=== PATIENT | female | born 1995 ===

== ENCOUNTER 2024-12-20 20:16 | Inpatient (IN) | payer OTHER ==
[~2024-12-20] VITALS: Ht 157.5 cm; Wt 54.6 kg
[2024-12-20] MEDS ORDERED: DEXTROSE 50%-WATER 25 GM/50 ML SYRINGE IVP ONE (20:40)
[2024-12-20 21:13] LABS: PLATELET COUNT (AUTO) 241 K/uL (150-450); RED BLOOD CELL COUNT(AUTO) 4.47 MIL/uL (4.00-5.20); RED CELL DISTRIBUTION WIDTH 12.7 % (11.5-14.5); WHITE BLOOD COUNT (AUTO) 9.2 K/uL (4.5-11.0)
[2024-12-20] MEDS: DEXTROSE 50%-WATER 25 GM/50 ML SYRINGE IVP ONE (21:13)
[2024-12-20 21:49] LABS: CALCIUM, TOTAL 8.5 mg/dL (8.8-10.5); CREATININE 0.71 mg/dL (0.60-1.30); GLOMERULAR FILTR. RATE CALC > 60 mL/min (>60); GLUCOSE,RANDOM 246 mg/dL (70-110); SODIUM SERUM 140 mmol/L (136-145); UREA NITROGEN, BLOOD 10 mg/dL (7-18)
[2024-12-20 21:52] LABS: ASPARTATE AMINOTRANSFERASE 15 U/L (15-37); TOTAL PROTEIN, SERUM 7.2 g/dL (6.4-8.2)
[2024-12-20 22:04] LABS: TROPONIN I-HIGH SENSITIVITY Less Than 4 ng/L (<51)
[2024-12-20] MEDS ORDERED: ONDANSETRON HCL 4 MG/2 ML VIAL IVP PRN (22:30)
[2024-12-20] MEDS: DEXTROSE 5%-LACTATED RINGERS 1,000 ML IV SCH (23:00)
[2024-12-20] MEDS: HEPARIN SODIUM,PORCINE 5,000 UNITS/ML VIAL SQ SCH (23:38)
[2024-12-21 00:46] LABS: APPEARANCE,URINE CLEAR (CLEAR); GLUCOSE, URINE (UA) >=1000 mg/dL (NEGATIVE); LEUKOCYTE ESTERASE ,URINE NEGATIVE (NEGATIVE); NITRATE,URINE NEGATIVE (NEGATIVE); OCCULT BLOOD,URINE NEGATIVE (NEGATIVE); SPECIFIC GRAVITIY, URINE 1.019 (1.003-1.030)
[2024-12-21 01:19] LABS: SQUAMOUS EPITHELIAL CELL,UR Few /LPF (None Seen)
[2024-12-21 01:19] LABS: CALCIUM, TOTAL 8.6 mg/dL (8.8-10.5); CREATININE 0.57 mg/dL (0.60-1.30); GLOMERULAR FILTR. RATE CALC > 60 mL/min (>60); GLUCOSE,RANDOM 180 mg/dL (70-110); SODIUM SERUM 141 mmol/L (136-145); UREA NITROGEN, BLOOD 8 mg/dL (7-18)
[2024-12-21 01:24] LABS: ASPARTATE AMINOTRANSFERASE 16 U/L (15-37); TOTAL PROTEIN, SERUM 7.0 g/dL (6.4-8.2)
[2024-12-21] MEDS: DEXTROSE 50%-WATER 25 GM/50 ML SYRINGE IVP PRN (01:33)
[2024-12-21] MEDS: GLUCAGON,HUMAN RECOMBINANT 1 MG VIAL SQ ONE (01:37)
[2024-12-21] MEDS: RINGERS SOLUTION,LACTATED 1,000 ML IV SCH (02:56)
[2024-12-21] MEDS: DEXTROSE 10%-WATER 1,000 ML IV SCH (02:56)
[2024-12-21 03:56] LABS: GLUCOMETER DEV NAME(LOC) ER.7; GLUCOSE,POINT OF CARE 177 MG/DL (70-110)
[2024-12-21] MEDS: DEXTROSE 50%-WATER 25 GM/50 ML SYRINGE IVP ONE (04:41)
[2024-12-21] MEDS: GLUCAGON,HUMAN RECOMBINANT 1 MG VIAL IM ONE (04:41)
[2024-12-21 04:57] LABS: PLATELET COUNT (AUTO) 246 K/uL (150-450); RED BLOOD CELL COUNT(AUTO) 4.34 MIL/uL (4.00-5.20); RED CELL DISTRIBUTION WIDTH 12.9 % (11.5-14.5); WHITE BLOOD COUNT (AUTO) 15.7 K/uL (4.5-11.0)
[2024-12-21 05:07] LABS: CALCIUM, TOTAL 8.1 mg/dL (8.8-10.5); CREATININE 0.74 mg/dL (0.60-1.30); GLOMERULAR FILTR. RATE CALC > 60 mL/min (>60); SODIUM SERUM 136 mmol/L (136-145); UREA NITROGEN, BLOOD 8 mg/dL (7-18)
[2024-12-21 05:10] LABS: GLUCOSE,RANDOM 566 mg/dL (70-110)
[2024-12-21] MEDS: HYDROCORTISONE SOD SUCC 250 MG/2 ML VIAL IVP ONE (05:52)
[2024-12-21] MEDS: SODIUM CHLORIDE 154 MEQ in DEXTROSE 10%-WATER 1,000 ML IV SCH (05:52)
[2024-12-21 07:56] LABS: GLUCOMETER DEV NAME(LOC) ER.7; GLUCOSE,POINT OF CARE 80 MG/DL (70-110)
[2024-12-21 08:43] LABS: CALCIUM, TOTAL 8.7 mg/dL (8.8-10.5); CREATININE 0.47 mg/dL (0.60-1.30); GLOMERULAR FILTR. RATE CALC > 60 mL/min (>60); GLUCOSE,RANDOM 103 mg/dL (70-110); SODIUM SERUM 141 mmol/L (136-145); UREA NITROGEN, BLOOD 8 mg/dL (7-18)
[2024-12-21 08:45] VITALS: BP 122/61; PULSE 81; RESP 18; TEMP 98.7; O2SAT 98
[2024-12-21 08:51] LABS: GLUCOMETER DEV NAME(LOC) ER.7; GLUCOSE,POINT OF CARE 87 MG/DL (70-110)
[2024-12-21 10:08] LABS: LACTIC ACID 1.3 mmol/L (0.4-2.0)
[2024-12-21] MEDS: POTASSIUM CHLORIDE 20 MEQ ER TABLET PO ONE (10:26)
[2024-12-21] MEDS: DOCUSATE SODIUM 100 MG CAPSULE PO SCH (10:26)
[2024-12-21 12:00] VITALS: BP 92/52; PULSE 71; PULSE 83; RESP 15; TEMP 97.6; O2SAT 97
[2024-12-21] MEDS: MAGNESIUM SULFATE 2 GM/WATER 50 ML IV ONE (12:04)
[2024-12-21] MEDS ORDERED: SODIUM CHLORIDE 0.9% 250 ML IV ONE (12:05)
[2024-12-21 12:45] LABS: CALCIUM, TOTAL 8.5 mg/dL (8.8-10.5); CREATININE 0.49 mg/dL (0.60-1.30); GLOMERULAR FILTR. RATE CALC > 60 mL/min (>60); GLUCOSE,RANDOM 161 mg/dL (70-110); SODIUM SERUM 140 mmol/L (136-145); UREA NITROGEN, BLOOD 8 mg/dL (7-18)
[2024-12-21 13:55] LABS: GLUCOMETER DEV NAME(LOC) ICU.S7; GLUCOSE,POINT OF CARE 156 MG/DL (70-110)
[2024-12-21 13:55] LABS: GLUCOMETER DEV NAME(LOC) ICU.S7; GLUCOSE,POINT OF CARE 122 MG/DL (70-110)
[2024-12-21 16:01] VITALS: BP 109/68; PULSE 75; RESP 17; TEMP 98.1; O2SAT 98
[2024-12-21 16:35] LABS: GLUCOMETER DEV NAME(LOC) 5S.1E; GLUCOSE,POINT OF CARE 136 MG/DL (70-110)
[2024-12-21] MEDS: HYDROCORTISONE SOD SUCC 100 MG/2 ML VIAL IVP SCH (16:44)
[2024-12-21 17:11] LABS: CALCIUM, TOTAL 8.5 mg/dL (8.8-10.5); CREATININE 0.48 mg/dL (0.60-1.30); GLOMERULAR FILTR. RATE CALC > 60 mL/min (>60); GLUCOSE,RANDOM 77 mg/dL (70-110); SODIUM SERUM 142 mmol/L (136-145); UREA NITROGEN, BLOOD 7 mg/dL (7-18)
[2024-12-21 17:30] LABS: GLUCOMETER DEV NAME(LOC) ICUN.7; GLUCOSE,POINT OF CARE 123 MG/DL (70-110)
[2024-12-21 17:30] LABS: GLUCOMETER DEV NAME(LOC) ICUN.7; GLUCOSE,POINT OF CARE 89 MG/DL (70-110)
[2024-12-21 17:30] LABS: GLUCOMETER DEV NAME(LOC) ICUN.7; GLUCOSE,POINT OF CARE 178 MG/DL (70-110)
[2024-12-21 19:43] VITALS: BP 111/86; PULSE 88; RESP 17; TEMP 98.4; O2SAT 98
[2024-12-21 20:00] VITALS: BP 111/86; PULSE 88; RESP 18; TEMP 98.4; O2SAT 98
[2024-12-21] MEDS: MELATONIN 5 MG TABLET PO PRN (21:06)
[2024-12-21] MEDS: CHLORHEXIDINE GLUCONATE 2% TOWELETTE [2'S/6'S] TP SCH (22:00)
[2024-12-22] VITALS (7 sets, daily range): BP systolic 104–120; BP diastolic 64–84; PULSE 78–105; RESP 16–19; TEMP 98–98.4; O2SAT 98–100
[2024-12-22 02:40] LABS: GLUCOMETER DEV NAME(LOC) 5N.1D; GLUCOSE,POINT OF CARE 194 MG/DL (70-110)
[2024-12-22 02:40] LABS: GLUCOMETER DEV NAME(LOC) 5N.1D; GLUCOSE,POINT OF CARE 165 MG/DL (70-110)
[2024-12-22 02:40] LABS: GLUCOMETER DEV NAME(LOC) 5N.1D; GLUCOSE,POINT OF CARE 168 MG/DL (70-110)
[2024-12-22 03:26] LABS: GLUCOMETER DEV NAME(LOC) 5N.2C; GLUCOSE,POINT OF CARE 139 MG/DL (70-110)
[2024-12-22 05:41] LABS: GLUCOMETER DEV NAME(LOC) 5N.2C; GLUCOSE,POINT OF CARE 128 MG/DL (70-110)
[2024-12-22 08:26] LABS: GLUCOMETER DEV NAME(LOC) 5S.1E; GLUCOSE,POINT OF CARE 153 MG/DL (70-110)
[2024-12-22 12:36] LABS: GLUCOMETER DEV NAME(LOC) 5S.1E; GLUCOSE,POINT OF CARE 88 MG/DL (70-110)
[2024-12-22 18:16] LABS: GLUCOMETER DEV NAME(LOC) 5N.1D; GLUCOSE,POINT OF CARE 178 MG/DL (70-110)
[2024-12-22 21:45] LABS: GLUCOMETER DEV NAME(LOC) 5N.1D; GLUCOSE,POINT OF CARE 154 MG/DL (70-110)
[2024-12-23 04:04] VITALS: BP 110/76; PULSE 97; RESP 16; TEMP 97.9; O2SAT 98
[2024-12-23 06:50] LABS: CALCIUM, TOTAL 8.2 mg/dL (8.8-10.5); CREATININE 0.44 mg/dL (0.60-1.30); GLOMERULAR FILTR. RATE CALC > 60 mL/min (>60); GLUCOSE,RANDOM 124 mg/dL (70-110); SODIUM SERUM 143 mmol/L (136-145); UREA NITROGEN, BLOOD 2 mg/dL (7-18)
[2024-12-23 07:04] LABS: PLATELET COUNT (AUTO) 230 K/uL (150-450); RED BLOOD CELL COUNT(AUTO) 4.05 MIL/uL (4.00-5.20); RED CELL DISTRIBUTION WIDTH 12.7 % (11.5-14.5); WHITE BLOOD COUNT (AUTO) 9.4 K/uL (4.5-11.0)
[2024-12-23 07:21] VITALS: BP 107/68; PULSE 88; RESP 18; TEMP 98; O2SAT 98
[2024-12-23 10:21] LABS: GLUCOMETER DEV NAME(LOC) 5S.1E; GLUCOSE,POINT OF CARE 129 MG/DL (70-110)
[2024-12-23 11:24] VITALS: BP 116/84; PULSE 87; RESP 18; TEMP 98.4; O2SAT 98
[2024-12-23 15:20] VITALS: BP 121/84; PULSE 91; RESP 18; TEMP 98.1; O2SAT 97
[2024-12-24 06:00] LABS: GLUCOMETER DEV NAME(LOC) 5N.1D; GLUCOSE,POINT OF CARE 137 MG/DL (70-110)
[2024-12-24 06:00] LABS: GLUCOMETER DEV NAME(LOC) 5N.1D; GLUCOSE,POINT OF CARE 112 MG/DL (70-110)
[2024-12-24 06:00] LABS: GLUCOMETER DEV NAME(LOC) 5N.1D; GLUCOSE,POINT OF CARE 134 MG/DL (70-110)
[2024-12-24 06:00] LABS: GLUCOMETER DEV NAME(LOC) 5N.1D; GLUCOSE,POINT OF CARE 116 MG/DL (70-110)
== END 2024-12-23 16:15 | disposition home or self-care (01) | DRG 817 ==
LOC: EMS 20:16 → EDH 22:21 → ICU 12-21 08:45 → 5S 12-21 13:15
PROVIDERS: ADMIT Internal Medicine; ATTEND Internal Medicine
PROC: GZ56ZZZ Individual Psychotherapy, Supportive (ICD-10-PCS; principal; 2024-12-21)
PROC: GZ58ZZZ Individual Psychotherapy, Cognitive-Behavioral (ICD-10-PCS; 2024-12-21)
DX: T38.3X2A Poisoning by insulin and oral hypoglycemic [antidiabetic] drugs, intentional self-harm, initial encounter (principal); G93.41 Metabolic encephalopathy; F33.2 Major depressive disorder, recurrent severe without psychotic features; E16.2 Hypoglycemia, unspecified; R65.11 Systemic inflammatory response syndrome (SIRS) of non-infectious origin with acute organ dysfunction; D72.829 Elevated white blood cell count, unspecified; F41.1 Generalized anxiety disorder; Y92.89 Other specified places as the place of occurrence of the external cause
CPT/HCPCS: 71045; 80048; 80053; 80076; 81001; 82962; 83605; 83735; 83880; 84484; 84703; 85025; 87081; 93005; 96361; 96374; 99291; G0480; G0481; J1610; J1644; J1720; J2405; J3475; J7050; J7120; J7131; 36415-L1; 36415-TC